=== PATIENT | female | born 1995 | race African-American/Black ===

== ENCOUNTER 2020-04-19 16:07 | Emergency (ER) | payer OTHER ==
[~2020-04-19] VITALS: Ht 157.5 cm; Wt 60.3 kg
[2020-04-19] MEDS ORDERED: PREDNISONE 20 MG TAB PO ONE (16:45)
[2020-04-19] MEDS ORDERED: PREDNISONE 20 MG TAB ONE (16:50)
[2020-04-19] MEDS ORDERED: PREDNISONE20 MG PO (17:17)
== END 2020-04-19 17:47 | disposition home or self-care (01) ==
LOC: FSED 16:18
DX: M72.2 Plantar fascial fibromatosis (principal); M79.672 Pain in left foot
CPT/HCPCS: 73630; 99284; J7512